=== PATIENT | male | born 1965 | race African-American/Black ===

== ENCOUNTER 2023-06-30 13:31 | Emergency (ER) | payer OTHER, SELFPAY ==
--- NOTE | 2023-06-30 13:37 | ED.SOB ---
HPI - SOB/Dyspnea General Chief Complaint: Unspecified Stated Complaint: SOB/Swelling Legs/Feet Time Seen by Provider: 06/30/23 13:36 Source: patient Mode of arrival: ambulatory Limitations: no limitations History of Present Illness HPI Narrative: Guerrero is a 58-year-old male patient presenting to the clinic today with complaints of shortness of breath, nonproductive cough, and lower extremity swelling. He reports the lower extremity swelling has been going on for approximately 3 weeks. States the cough and shortness of breath has been over the last week. Denies any fever, chills, nausea, vomiting, diarrhea, headache, or URI symptoms. Denies any chest pain currently. No past medical history. Does not currently take any medications. stated symptoms have been going on longer. Related Data Home Medications Medication Instructions Recorded Confirmed No Home Medications 06/30/23 06/30/23 Allergies Allergy/AdvReac Type Severity Reaction Status Date / Time No Known Allergies Allergy Verified 06/30/23 13:45 Review of Systems Review of Systems: Pertinent positives per HPI. Patient denies any fever, chills, rash, headache, visual changes, dizziness, chest pain, palpitations, nausea, vomiting, diarrhea, constipation, abdominal pain, or any urinary issues. PMFSH Comments At the time of my signature, I reviewed and agree with the nursing past medical, surgical, social, and family history. There is no relevant family history pertinent to the patient complaint. Exam Narrative: General: Well-developed, obese, in no apparent distress Head: Normocephalic, atraumatic. Cardio: Irregular rate and rhythm, tachycardic, no murmur appreciated. Resp: Crackles heard over the right posterior middle lobe and lower lobe, no rhonchi, wheezing or rubs. Extremities: No deformity, 2 plus pitting edema in bilateral lower extremities, no cyanosis, capillary refill less than 2 seconds, peripheral pulses palpable and strong. Integumentary: [place], warm, and dry, intact without lesion, no rashes. Course Course Emergency Course: Portions of this record may have been created with voice recognition software. Level of Care: Express Care Visit Vital Signs Vital signs: Vital signs reviewed Transfer Transfered to: [facility] Transportation: ALS Transfer rationale: AFib with RVR-new onset, bilateral lower extremity swelling, crackles in the right posterior lobe, shortness of breath Accepting physician: Laith Transfer comments: Transfer via ALS MDM - SOB/Dyspnea MDM Narrative Medical decision making narrative: At the time of visit patient is resting on the exam table. EKG shows AFib with RVR with a heart rate of 111-new onset. Patient is having cough and shortness of breath with bilateral lower extremity swelling. Recommend transfer to the emergency room and patient agrees. Differential Diagnosis Differential diagnosis: Likely acute exacerbation of chronic obstructive airways disease, congestive heart failure, community acquired pneumonia, asthma with exacerbation, pulmonary embolism and other (AFib with RVR-new onset) ECG Data EKG #1: Attestation: I personally reviewed and interpreted this ECG as follows: ECG completion date: 06/30/23 ECG completion time: 13:53 Prior ECG tracings: not available for review Interpretation: EKG was completed and shows atrial fib with RVR with a heart rate of 111 beats per minute, QRS durations 105 milliseconds, QT-QTC is 281-347 milliseconds, P- R-T axis is * 92 6 Discharge Plan Discharge Clinical Impression: Atrial fibrillation with rapid ventricular response, Shortness of breath, Swelling of both lower extremities Patient Disposition: Acute Care Hospital Condition: Stable Instructions: Antibiotic Form Prescriptions: No Action No Home Medications Follow-up/Referrals: UNKNOWN,DOCTOR [Non-Staff] - Time of Disposition: 14:0
[2023-06-30 13:51] VITALS: BP 136/79; PULSE 103; RESP 16; TEMP 36.8; O2SAT 96
--- NOTE | 2023-06-30 14:10 | ECG_ITS ---
Measurements Intervals [place] Rate: 98 P: NV: 0 QRS: 87 QRSD: 116 T: -37 QT: 371 QTc: 474 Interpretive Statements ATRIAL FIBRILLATION WITH ABERRANT CONDUCTION NONSPECIFIC T-WAVE ABNORMALITY ABNORMAL ECG COMPARED TO ECG 06/30/2023 13:53:37 NO SIGNIFICANT CHANGE Electronically Signed On 07-01-2023 7:25:00 CDT by Devante Delarosa M.D.
== END 2023-06-30 14:05 | disposition short-term general hospital (02) ==
PROVIDERS: Emergency Provider Nurse Practitioner Family
DX: I48.91 Unspecified atrial fibrillation (principal); R06.02 Shortness of breath; R22.43 Localized swelling, mass and lump, lower limb, bilateral
CPT/HCPCS: 93005; 99215; G0463

== ENCOUNTER 2023-06-30 14:29 | Observation (INO) | payer OTHER, SELFPAY ==
[2023-06-30] VITALS (9 sets, daily range): BP systolic 112–153; BP diastolic 86–112; PULSE 94–109; RESP 16–25; TEMP 36.1–36.4; O2SAT 93–97; BMI 44.6
--- NOTE | ~2023-06-30 | US_ITS ---
EXAMINATION: US venous doppler [facility] DATE: 06/30/2023 15:33 INDICATION: Bilateral lower limb swelling TECHNIQUE: Guidry scale images without and with compression and Doppler images of the bilateral lower e xtremity veins were obtained. COMPARISON: None FINDINGS: The right superficial femoral vein is not demonstrated. The right common femoral vein, profunda femor al vein, popliteal vein, peroneal trunk, posterior tibial veins, and greater saphenous vein are paten t. The left common femoral vein, profunda femoral vein, femoral vein, popliteal vein, peroneal trunk, po sterior tibial veins, and greater saphenous vein are patent. IMPRESSION: 1. No deep venous thrombosis identified, examination somewhat limited. Reviewed, dictated and finalized at location F.
--- NOTE | ~2023-06-30 | NM_ITS ---
EXAMINATION: NM gage stress w perfusion DATE: 07/03/2023 12:15 INDICATION: Decreased left ventricular systolic function. Dilated cardiomyopathy. New atrial fibrilla tion. Congestive heart failure. TECHNIQUE: Rest images were obtained following intravenous administration of 9.6 mCi Tc99m tetrofosmi n (Myoview). The patient was infused intravenously with Lexiscan (regadenoson). Then, 31.2 mCi Tc99m tetrofosmin (Myoview) was administered intravenously, and stress images were obtained. Data was recon structed into short axis and horizontal and vertical long axis SPECT images. Gated SPECT images were also obtained. COMPARISON: None. FINDINGS: There is no definite reversible or fixed perfusion abnormality to suggest ischemia or infar ction. There is no segmental wall motion abnormality. Left ventricular ejection fraction measures 4 3%. IMPRESSION: 1. No definite ischemia or infarct. 2. Decreased left ventricular ejection fraction measuring 43%. Reviewed, dictated and finalized at location A.
--- NOTE | ~2023-06-30 | XR_ITS ---
EXAMINATION: XR chest 2V DATE: 06/30/2023 15:44 INDICATION: Shortness of breath TECHNIQUE: PA and lateral views of the chest are obtained. COMPARISON: None available FINDINGS: Cardiomegaly is noted. The lung volumes are low. There is a mild diffuse interstitial patte rn. No pleural effusion or pneumothorax. IMPRESSION: 1. Cardiomegaly with probable mild pulmonary edema. Reviewed, dictated and finalized at location F.
--- NOTE | 2023-06-30 14:31 | ECG_ITS ---
Measurements Intervals [place] Rate: 111 P: IA: 0 QRS: 92 QRSD: 105 T: 6 QT: 281 QTc: 383 Interpretive Statements ATRIAL FIBRILLATION WITH RAPID VENTRICULAR RESPONSE WITH ABERRANT CONDUCTION BORDERLINE RIGHT AXIS DEVIATION [QRS AXIS > 90] NONSPECIFIC T-WAVE ABNORMALITY ABNORMAL RHYTHM ECG NO PREVIOUS ECG AVAILABLE FOR COMPARISON Electronically Signed On 07-01-2023 7:23:59 CDT by Devante Delarosa M.D.
--- NOTE | 2023-06-30 14:45 | ED.SOB ---
HPI - SOB/Dyspnea General Chief Complaint: Shortness of Breath/Dyspnea Stated Complaint: SOB Time Seen by Provider: 06/30/23 14:36 History of Present Illness HPI Narrative: Patient is a 58-year-old male with no known past medical history here with shortness of breath and leg swelling. He states his legs began swelling bilaterally approximately 4 weeks ago. He then noticed about 2 weeks ago that he began having shortness of breath which is worse on exertion. Today his significant other convinced him to go to an urgent care to get seen only promptly sent him into the emergency department after identifying atrial fibrillation on EKG. He states he has not seen a physician for about 25 years, has never seen a buggy driver that he is aware of. He has not been experiencing any chest pains during this period of time. No cough, congestion, fever, chills. He does not take any medications. Related Data Home Medications Medication Instructions Recorded Confirmed No Home Medications 06/30/23 06/30/23 Allergies Allergy/AdvReac Type Severity Reaction Status Date / Time No Known Allergies Allergy Verified 06/30/23 13:45 Review of Systems Review of Systems: CONSTITUTIONAL: Denies fever, chills, or sweats. EYES: Denies visual changes, redness, or discharge. ENT: Denies rhinorrhea, congestion, sore throat, or otalgia. CARDIOVASCULAR: Denies chest pain, palpitations. Has bilateral leg edema. RESPIRATORY: Shortness of breath, Denies cough GASTROINTESTINAL: Denies abdominal pain, nausea, vomiting, or diarrhea. GENITOURINARY: Denies dysuria or hematuria. SKIN: Denies rash or itching. MUSCULOSKELETAL: Denies back pain, joint pain, or myalgia. NEUROLOGIC: Denies headache, numbness, or weakness. PSYCHIATRIC: Denies anxiety or depression. [facility] Social History Social History Smoking status: Never smoker Alcohol intake: current Drinks per week: 5 Substance use: never Lack of Transportation: No Lack of Food: Never True Current Housing: I Have Housing Concerned About Future Housing: No Difficulty Paying Gas/Electric Bills: No Difficulty Paying for Meds: No Currently Unemployed: No Education: Decline to Answer Difficulty w/ Childcare or Family Care: No Spiritual care concerns: No Exam Narrative: GENERAL: Well-appearing, well-nourished, and in no acute distress. HEAD: Normocephalic, atraumatic. EYES: PERRLA and EOMI. ENT: Nares clear. Mucous membranes moist. NECK: Supple. CHEST: Diffuse faint expiratory wheeze bilaterally. No respiratory distress. HEART: irregularly irregular rhythm. Normal peripheral pulses. ABDOMEN: Soft, nontender, nondistended. EXTREMITIES: Normal range of motion. Bilateral lower extremity pitting edema to the knee. SKIN: Warm, dry, no rash. NEURO: No focal deficits. Alert and oriented x3. PSYCH: Normal mood and affect. Course Course Emergency Course: Chart review performed. No prior visits aside from urgent care note today. Patient seen evaluated, in no acute distress, he is here with shortness of breath, leg swelling and an EKG showing rate controlled AFib. Suspect new onset AFib as well as likely new onset heart failure. Will do CHF workup, check electrolytes, chest x-ray, bilateral lower extremity Dopplers. Anticipate admission. Lab work and imaging reviewed. CBC grossly unremarkable, BNP elevated, Troponin within normal limits at 0.022. UA negative. CXR consistent with new onset heart failure. LE doppler negative. Lasix 40 mg ordered. Will discuss with hospitalist for admission. Spoke with Paris, accepted by hospitalist team under Dr. Connell. Dose of eliquis ordered for new onset afib. Vital Signs Vital signs: Vital Signs Pulse Rate 106 H 06/30/23 14:22 Respiratory Rate 24 H 06/30/23 14:22 Blood Pressure 153/112 H 06/30/23 14:22 Pulse Oximetry 97 06/30/23 14:22 Oxygen Delivery
[2023-06-30 15:54] LABS: Basophils Absolute Auto 0.1 K/mm3 (0.0-0.1); Eosinophils Absolute Auto 0.4 K/mm3 (0-0.3); Eosinophils Percent Auto 7.2 % (0-4.4); Hemoglobin 13.3 g/dL (14.0-18.0); Immature Granulocyte Absolute 0.01 K/mm3 (0.00-0.031); Immature Granulocyte Percent A 0.2 % (0-0.5); Lymphocytes Absolute Auto 1.22 K/mm3 (0.9-3.2); Mean Corpuscular HGB Conc 30.2 g/dl (32-36); Mean Corpuscular Hemoglobin 30.6 pg (26-34); Mean Corpuscular Volume 101.4 fl (80-100); Mean Platelet Volume 9.9 fl (7.4-10.4); Monocytes Absolute Auto 0.7 K/mm3 (0.1-0.6); Monocytes Percent Auto 11.5 % (2.6-8.5); Neutrophils Absolute Auto 3.4 K/mm3 (1.3-6.7); Neutrophils Percent Auto 59.1 % (45.5-73.1); Platelet Count Result 227 k/mm3 (150-375); Red Blood Count 4.34 M/mm3 (4.6-6.20); Red Cell Distribution Width 15.1 % (11.5-14.5); White Blood Count 5.8 K/mm3 (4.5-10.0)
[2023-06-30 16:03] LABS: Appearance Urine Clear (Clear); Bacteria Urine None Seen /hpf; Bilirubin Urine Negative (Negative); Blood Urine Negative (Negative); Color Urine Yellow (Yellow); Glucose Urine UA Negative (Negative); Ketones Urine Negative (Negative); Leukocyte Esterase Ur 1+ LEU/UL (Negative); Need Manual Microscopic Reviewed; Nitrate Urine Negative (Negative); Non Pathogenic Casts 0-2; Protein Urine Negative (Negative); RBC Urine 0-2 /hpf (0-2); Specific Grav Ur 1.004 (1.001-1.035); Squamous Epithelial Cell Urine Occasional /hpf (Few); WBC Urine 0-5 /hpf; pH Urine 6.5 (5.0-9.0)
[2023-06-30 16:06] LABS: Alanine Aminotransferase 31 U/L (6-50); Albumin Level 4.2 g/dL (3.5-5.1); Alkaline Phosphatase 84 U/L (38-126); Anion Gap 4 mmol/L (8-16); Aspartate Amino Transferase 35 U/L (17-59); Bilirubin,Total 1.4 mg/dL (0.2-1.3); Blood Urea Nitrogen 9 mg/dL (9-20); Calcium 9.1 mg/dL (8.4-10.2); Carbon Dioxide 36 mmol/L (22-30); Chloride 98 mmol/L (98-107); Estimated CRCL calculation 94 ml/min; Estimated Glomerular Filt Rate > 60; Glucose 125 mg/dL (65-110); Potassium 3.7 mmol/L (3.4-5.0); Sodium 138 mmol/L (137-145)
[2023-06-30 16:08] LABS: INR 1.1; Prothrombin Time 15.1 Seconds (11.1-14.7)
[2023-06-30 16:09] LABS: Partial Thromboplastin Time 27.6 SECONDS (22.3-36.8)
[2023-06-30 16:14] LABS: NT Pro B Type Natriuretic Pept 4720 pg/mL (19.9-100)
[2023-06-30 16:15] LABS: Add Urine Microscopic? YES
[2023-06-30 16:18] LABS: Troponin I 0.022 ng/mL (0.000-0.034)
[2023-06-30 16:24] LABS: Magnesium 2.1 mg/dL (1.6-2.3)
[2023-06-30] MEDS: FUROSEMIDE INJ 40 MG/4 ML VIAL IV PUSH (16:57)
[2023-06-30] MEDS: APIXABAN 5 MG TABLET PO (17:21)
--- NOTE | 2023-06-30 17:24 | PC.NURSE ---
Food tray ordered for patient
--- NOTE | 2023-06-30 19:40 | PM.IMHP ---
H&P: HPI History of Present Illness Date/Time: 06/30/23 19:40 Chief Complaint: Shortness of breath Narrative: This is a 58-year-old male patient who has no prior medical history. The patient has been having some swelling to his lower extremities for at least the last 4 weeks. He has also been more short of breath over the last 2 weeks with exertion. His significant other convinced him to go to the emergency room to get checked out today. The patient had a EKG performed and it was read as atrial fibrillation. The patient has not been to a physician in over 25 years. The patient denies any chest pain. He denies any nausea vomiting diarrhea. He denies any dizziness fever chills or cough. He is not currently on any chronic medications. EKG here confirmed atrial fibrillation with aberrant conduction. His hemoglobin is 13.3. MCV is 101.4. Troponin negative x2. BNP 4720. Chest x-ray was read as?Cardiomegaly with probable mild pulmonary edema. Venous Dopplers were read as. No deep venous thrombosis identified, examination somewhat limited. The patient was given Lasix and Eliquis in the emergency room. The patient is being admitted to observation status on the date of service of 06/30/2023. Review of Systems Review of Systems: All systems reviewed & are unremarkable except as noted in HPI and below Constitutional: Constitutional: Reports as per HPI and Reports no additional constitutional complaints Eyes: Eyes: Reports as per HPI and Reports no additional eye complaints ENT: Reports system reviewed and no additional complaints, except as documented and Reports Normal hearing present Cardiovascular: Cardiovascular: Reports no additional cardiovascular complaints Respiratory: Respiratory: Reports no additional respiratory complaints and Reports no additional respiratory complaints Gastrointestinal: Gastrointestinal: Reports as per HPI and Reports no additional gastrointestinal complaints Musculoskeletal: Musculoskeletal: Reports no additional musculoskeletal complaints Integumentary/Breasts: Skin/Breast: Reports system reviewed and no additional complaints, except as docu and Reports as per HPI Neurologic: Reports system reviewed and no additional complaints, except as documented, Reports as per HPI and Reports Normal hearing present Psychiatric: Psychiatric: Reports no additional psychiatric complaints and Reports as per HPI Endocrine: Endocrine: Reports no additional endocrine complaints Hematologic/Lymphatic: Hematologic/Lymphatic: Reports no additional hematologic/lymphatic complaints Allergic/Immunologic: Allergic/Immunologic: Reports no additional allergic/immunologic complaints [facility] Past Medical History Medical History (Updated 07/01/23 @ 00:08 by Paris Krasu NP) No pertinent past medical history Surgical History Surgical History (Updated 07/01/23 @ 00:08 by Paris Kraus NP) No pertinent past surgical history Family History Family History (Updated 07/01/23 @ 00:09 by Paris Kraus NP) Father Cancer Social History Social History (Updated 07/01/23 @ 00:10 by Paris Kraus NP) Social History: The patient is a lifelong non smoker. The patient has a significant other but they do not live together. The patient has 3 children and he is single. 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 The patient states that he drinks socially on the weekend. Code status full code Smoking status: Never smoker Alcohol intake: current Drinks per week: 5 Substance use: never Lack of Transportation: No Lack of Food: Never True Current Housing: I Have Housing Concerned About Future Housing: No Difficulty Paying Gas/Electric Bills: No Difficulty Paying for Meds: No Currently Unemployed: No Education: Decline to Answer Difficulty w/ Childcare or Family Care: No Spiritual care concerns: No Meds Home Medications and Allergies Home Medications Medication Ins
--- NOTE | 2023-06-30 19:45 | ADMGEN ---
This patient, Guerrero Brown, was admitted to 3 [facility] Surg Room 312-01 @ 2473. Patient/family oriented to hospital policies and general routines including ID bracelet, bed and alarms, visiting hours, pain management, procedures, bathroom and other care routines, personal items, smoking policy, room service/diet, and visiting hours. Information on how to activate the Rapid Response Team has been discussed. Patient/Family are encouraged to report perceived risks to care and to ask questions if they do not understand what they are told or what they should do.
[2023-06-30 21:41] LABS: Troponin I 0.021 ng/mL (0.000-0.034)
[2023-07-01] VITALS (10 sets, daily range): BP systolic 148–156; BP diastolic 95–104; PULSE 88–112; RESP 18–22; TEMP 36.1–36.4; O2SAT 92–97
--- NOTE | 2023-07-01 | ECHO_ITS ---
Patient Info Name: Guerrero Brown Age: 58 years : 1965 Gender: Male Ht: 71 in Wt: 320 lbs BSA: 2.77 m2 HR: 88 bpm BP: 122 / 102 mmHg Heart Rhythm: Atrial Fibrillation Technical Quality: Fair Exam Date: 07/01/2023 11:50 AM Exam Location: [facility] Pulmonary Exam Room: [facility] Patient Status: Outpatient Admit Date: 06/30/2023 Staff Ordering Physician: Paris Kraus NP Coal Cutter: Sophia Mendosa RDCS Attending Provider: Ruiz Emery MD Referring Physician: Efra MANLEY; Exam Type: CA echo dop color flow w con Study Info Indications - new afib Complete two-dimensional, color flow and Doppler transthoracic echocardiogram is performed with contrast to opacify the left ventricle and to improve the deliniation of the left ventricle endocardial borders. Contrast/Agitated Saline Contrast/Ag. Saline: Definity Amount: 2.00 ml Administered By: Sophia Mendosa [facility] Existing IV Access: Yes IV Access Condition: patent with no signs of infiltration Summary 1. Technically somewhat challenging exam because of obesity. 2. Four-chamber cardiac dilation. 3. Moderately depressed left ventricular systolic function and right ventricular systolic dysfunction. 4. Mild mitral and tricuspid regurgitation resulting from annular enlargement. 5. Definity contrast injected to improve visualization. 6. Atrial fibrillation. Left Ventricle Left ventricular chamber dimension is moderately enlarged. Left ventricular systolic function is moderately reduced, estimated at 35-40%. Right Ventricle Right ventricular chamber dimension is moderately enlarged. Right ventricular systolic function is reduced. Left Atria Left atrial chamber dimension is severely enlarged. Right Atria Right atrial chamber dimension is moderately enlarged. Aortic Valve The aortic valve is normal. Pulmonic Valve The pulmonic valve is normal. There is trace pulmonic regurgitation. Mitral Valve The mitral valve has normal leaflets. There is mild mitral valve regurgitation. Tricuspid Valve The tricuspid valve leaflets are normal. There is mild tricuspid valve regurgitation. Pericardium/Pleural The pericardium appears normal. Aorta The aortic root size at the sinus of Valsalva is normal. Left Ventricular Outflow Tract Name Value Normal LVOT 2D LVOT Diameter 2.08 cm LVOT Doppler LVOT Peak Gradient 4 mmHg LVOT Mean Gradient 3 mmHg LVOT VTI 18.69 cm LVOT VTI/AV VTI Ratio 1.12 LVOT Stroke Volume 63.69 ml LVOT CO 16.73 l/min LVOT CI 6.05 L/min/m2 Pulmonic Valve Name Value Normal RVOT Doppler RVOT Peak Gradient 0 mmHg PV Doppler
[2023-07-01 01:07] LABS: Troponin I 0.025 ng/mL (0.000-0.034)
--- NOTE | 2023-07-01 05:48 | PC.NURSE ---
bladder scanned pt this morning 262 ml
[2023-07-01 07:03] LABS: Basophils Absolute Auto 0.1 K/mm3 (0.0-0.1); Basophils Percent Auto 0.9 % (0.2-1.2); Eosinophils Absolute Auto 0.5 K/mm3 (0-0.3); Eosinophils Percent Auto 8.3 % (0-4.4); Hematocrit 43.7 % (42.0-52.0); Hemoglobin 13.4 g/dL (14.0-18.0); Immature Granulocyte Absolute 0.02 K/mm3 (0.00-0.031); Immature Granulocyte Percent A 0.4 % (0-0.5); Lymphocytes Absolute Auto 1.06 K/mm3 (0.9-3.2); Lymphocytes Percent Auto 19.2 % (18.3-44.2); Mean Corpuscular HGB Conc 30.7 g/dl (32-36); Mean Corpuscular Volume 101.2 fl (80-100); Mean Platelet Volume 9.9 fl (7.4-10.4); Monocytes Absolute Auto 0.7 K/mm3 (0.1-0.6); Neutrophils Absolute Auto 3.3 K/mm3 (1.3-6.7); Neutrophils Percent Auto 59.2 % (45.5-73.1); Platelet Count Result 231 k/mm3 (150-375); Red Blood Count 4.32 M/mm3 (4.6-6.20); White Blood Count 5.5 K/mm3 (4.5-10.0)
[2023-07-01 07:19] LABS: Alanine Aminotransferase 30 U/L (6-50); Alkaline Phosphatase 92 U/L (38-126); Aspartate Amino Transferase 36 U/L (17-59); Bilirubin,Total 1.3 mg/dL (0.2-1.3); Blood Urea Nitrogen 11 mg/dL (9-20); Calcium 8.8 mg/dL (8.4-10.2); Carbon Dioxide > 40 mmol/L (22-30); Chloride 96 mmol/L (98-107); Estimated CRCL calculation 94 ml/min; Estimated Glomerular Filt Rate > 60; Glucose 107 mg/dL (65-110); Magnesium 2.1 mg/dL (1.6-2.3); Sodium 139 mmol/L (137-145)
--- NOTE | 2023-07-01 09:27 | PM.CNCAR ---
Assessment and Plan Assessment and plan (1) A-fib: Qualifiers: Atrial fibrillation type: unspecified Qualified Code(s): I48.91 - Unspecified atrial fibrillation Code(s): I48.91 - Unspecified atrial fibrillation Status: Acute Assessment and Plan: New diagnosis of atrial fibrillation. Chronicity unknown. Rate controlled with metoprolol. Discussed management of AF including rate vs. rhythm control. For now, will continue with rate control with plan for outpatient DCCV after he has been anticoagulated for 4-6 weeks Continue metoprolol 6.25mg b.i.d for now - he did have some mild bradycardia this morning, but also had some RVR. Generally rate controlled in the 90's. [id number] score 2 (HTN, CHF). Anticoagulation is warranted. Continue apixaban 5mg b.i.d. Echo has been ordered. Further recommendations to follow. ApneaLink tonight if he remains hospitalized Check TSH (2) Congestive heart failure: Qualifiers: Heart failure chronicity: acute Heart failure type: unspecified Qualified Code(s): I50.9 - Heart failure, unspecified Code(s): I50.9 - Heart failure, unspecified Status: Acute Assessment and Plan: Presents with shortness of breath and lower extremity edema. Improving with IV diuresis. ? diastolic heart failure Continue with IV furosemide for now Echo pending Further recommendations to follow echo results History of Present Illness History of Present Illness Consult date/time: 07/01/23 09:27 Requesting physician: Paris Kraus NP Consult reason: atrial fibrillation Reason For Visit: New Onset Afib/New Onset Heart Failure Narrative: Mr. Brown is a 58 year old male who presented to the hospital with a chief complaint of lower extremity swelling. He has no known medical history and has not seen a doctor in ~25 years. He began to experience bilateral calf and ankle swelling about one month ago. At that time he also began experiencing some shortness of breath. When he came to the hospital for evaluation of this he was found to be in atrial fibrillation with rapid ventricular response which is a new diagnosis for him. He denies feeling any palpitations or chest pain. He has been placed on a very low dose of beta priyanka and an anticoagulant. He is feeling better after receiving some diuretics as well and reports that his swelling is improved. Review of Systems Review of Systems: All systems reviewed & are unremarkable except as noted in HPI and below PMFSH Past Medical History Medical History No pertinent past medical history Surgical History Surgical History No pertinent past surgical history Family History Family History Father Cancer Social History Social History Social History: The patient is a lifelong non smoker. The patient has a significant other but they do not live together. The patient has 3 children and he is single. 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 The patient states that he drinks socially on the weekend. Code status full code Smoking status: Never smoker Alcohol intake: current Drinks per week: 5 Substance use: never Lack of Transportation: No Lack of Food: Never True Current Housing: I Have Housing Concerned About Future Housing: No Difficulty Paying Gas/Electric Bills: No Difficulty Paying for Meds: No Currently Unemployed: No Education: Decline to Answer Difficulty w/ Childcare or Family Care: No Spiritual care concerns: No Meds Home Medications and Allergies Home Medications Medication Instructions Recorded Confirmed Type apixaban 5 mg tablet (Eliquis) 5 mg PO Q12HR 1 month #60 tabs 07/04/23 Rx furosemide 40 mg tablet 40 mg PO SHIRA
--- NOTE | 2023-07-01 10:30 | PM.IMPN ---
Progress Note: A&P Assessment and Plan (1) A-fib: Qualifiers: Atrial fibrillation type: unspecified Qualified Code(s): I48.91 - Unspecified atrial fibrillation Code(s): I48.91 - Unspecified atrial fibrillation Status: Acute Assessment and Plan: New onset. TSH normal. echo ordered. The patient was started on Eliquis. The patient is rate controlled at this time. Cardiology has been consulted (2) Congestive heart failure: Qualifiers: Heart failure chronicity: acute Heart failure type: unspecified Qualified Code(s): I50.9 - Heart failure, unspecified Code(s): I50.9 - Heart failure, unspecified Status: Acute Assessment and Plan: Chest x-ray was read as. Cardiomegaly with probable mild pulmonary edema The patient was started on IV Lasix. Metoprolol initiated. Echo ordered Subjective Date/time seen: 07/01/23 10:30 Interval history: No chest pain, shortness of breath Review of Systems Review of Systems: All systems reviewed & are unremarkable except as noted in HPI and below Exam Const: General: cooperative, healthy appearing, comfortable, no acute distress, well developed, alert, awake, Physically active, average body habitus and well nourished Nutritional Appearance: average body habitus and well nourished Orientation/consciousness: oriented to person, oriented to place, oriented to time and patient oriented x3 Limitations: no limitations HENMT: Head: normal to inspection, No palpable skull fracture present, normocephalic and atraumatic Ears: hearing grossly normal bilaterally and external ears normal Face/Nose/Sinus: Normal external nose present and Normal nares present Eyes: General: appearance normal, both eyes and all related structures Alignment and Position: alignment normal Periorbital: periorbital findings normal Eyelids: eyelids normal Sclera: sclerae normal Pupils: Equal, round and reactive pupils present EOM: EOMs intact bilaterally Neck: Neck: normal visual inspection, full ROM, no lymphadenopathy, trachea midline and supple Chest: Chest palpation & inspection: normal inspection of the chest Resp: Effort & Inspection: normal respiratory effort Auscultation: clear to auscultation bilaterally Cardio: Palpation: normal PMI Rate: regular rate Rhythm: abnormal rhythm Heart sounds: S1 normal heart sound present and S2 normal heart sound present Peripheral pulses: Peripheral pulses 2+ throughout GI: Inspection: normal to inspection Auscultation: normal bowel sounds Rectal Exam: deferred Back/Spine/Pelvis: Cervical Spine: cervical ROM normal Skin: General skin exam: normal color Lesions: no lesions Rashes: no rashes Trauma: no lacerations or abrasions Wounds: no wounds Hair: normal Nails: normal Neuro: General: oriented to person, oriented to place, oriented to time and patient oriented x3 Cranial nerves: Yes Equal, round and reactive pupils present and Yes Normal hearing present Cognition (Neuro): normal cognition Speech: normal speech Gait exam (Neuro): Normal gait present Motor exam (neuro): 5/5 motor strength present throughout Sensory Exam: normal sensation Extrem: General: normal to inspection Right upper extremity: normal to inspection and shoulder/upper arm Left upper extremity: normal to inspection and shoulder/upper arm Right lower extremity: edema Details: 1+ Left lower extremity: edema Details: 1+ Psych: Appearance: grossly normal Mental Status: mental status grossly normal Speech and movement: Normal speech and movement present Affect: normal affect Attitude: cooperative Thought process: Normal thought process present Thought content: Yes Normal thought content present Insight: Good insight present (Psych) Judgement: Good judgement present (Psych) Objective Data Vital Signs Vital Signs: Vital Signs - 24 hr 06/30/23 14:22 06/30/23 14:30 06/30/23 15:00 Temperature Pulse Rate 106 H 94 98 Respir
[2023-07-01] MEDS: METOPROLOL TARTRATE 6.25 MG TABLET PO ×2 (10:53→21:07)
[2023-07-01] MEDS: FUROSEMIDE INJ 40 MG/4 ML VIAL IV PUSH ×2 (10:53→18:05)
[2023-07-01] MEDS: APIXABAN 5 MG TABLET PO ×2 (10:53→21:08)
[2023-07-01] MEDS: PERFLUTREN LIPID MICROSPHERES 1.5 ML VIAL DILUTED TO 10 ML TOTAL VOLUME IV PUSH (12:20)
--- NOTE | 2023-07-01 14:00 | IVDEFINITY ---
Prior to administration of IV Definity the patient was educated on the risks and benefits of the imaging enhancing agent including potential adverse side effects. The patient verbalized understanding. Allergies were verified. No exclusion criteria were identified and at least one of the following inclusion criteria were met: 1) physician request, 2) patient technically difficult to image (per the [place] [employer] guidelines of two or more segments not discernable within the apical view), or 3) questionable left ventricular function. ?
[2023-07-02] VITALS (15 sets, daily range): BP systolic 120–174; BP diastolic 80–108; PULSE 61–119; RESP 16–22; TEMP 35.8–36.9; O2SAT 89–96
[2023-07-02] MEDS: METOPROLOL TARTRATE INJ 5 MG/5 ML VIAL IV PUSH (05:37)
[2023-07-02] MEDS: METOPROLOL TARTRATE 25 MG TABLET PO ×2 (09:11→20:21)
[2023-07-02] MEDS: FUROSEMIDE INJ 40 MG/4 ML VIAL IV PUSH (09:11)
[2023-07-02] MEDS: APIXABAN 5 MG TABLET PO ×2 (09:11→20:21)
--- NOTE | 2023-07-02 09:57 | PM.PNCARD ---
Progress Note: A&P Assessment and Plan (1) A-fib: Qualifiers: Atrial fibrillation type: unspecified Qualified Code(s): I48.91 - Unspecified atrial fibrillation Code(s): I48.91 - Unspecified atrial fibrillation Status: Acute Assessment and Plan: New diagnosis of atrial fibrillation. Chronicity unknown. Rate controlled with metoprolol. Discussed management of AF including rate vs. rhythm control. For now, will continue with rate control with plan for outpatient DCCV after he has been anticoagulated for 4-6 weeks Continue metoprolol 25mg b.i.d. Should be shifted to Toprol XL at d/c. [id number] score 2 (HTN, CHF). Anticoagulation is warranted. Continue apixaban 5mg b.i.d. Echo showed moderately reduced LVSF, EF 35 - 40%. ApneaLink AHI 74. Outpatient sleep study. (2) Congestive heart failure: Qualifiers: Heart failure chronicity: acute Heart failure type: unspecified Qualified Code(s): I50.9 - Heart failure, unspecified Code(s): I50.9 - Heart failure, unspecified Status: Acute Assessment and Plan: Presents with shortness of breath and lower extremity edema. Improving with IV diuresis. Shift to p.o. furosemide tomorrow (3) Cardiomyopathy: Code(s): I42.9 - Cardiomyopathy, unspecified Status: Acute Assessment and Plan: Moderately reduced LVSF, EF 35 - 40% GDMT with entresto, spironolactone, metoprolol (should be shifted to Toprol XL at d/c) Will need an ischemic evaluation, can be done as outpatient as he is not having any anginal symptoms. Furthermore, he is on DOAC currently. Can add jardiance as well if it is affordable BMP tomorrow (4) NSVT (nonsustained ventricular tachycardia): Code(s): I47.29 - Other ventricular tachycardia Status: Acute Assessment and Plan: 7 beat run of NSVT on telemetry this morning. Continue beta priyanka. Subjective Date/time seen: 07/02/23 09:57 Interval history: Cardiology follow up for Afib, CHF Feeling well today. Swelling continues to improve. He denies any chest pain or palpitations. Shortness of breath resolved. no GOMEZ Review of Systems Review of Systems: All systems reviewed & are unremarkable except as noted in HPI and below Exam Const: General: comfortable, no acute distress, alert and awake Orientation/consciousness: patient oriented x3 HENMT: Head: normal to inspection Eyes: General: appearance normal, both eyes and all related structures Pupils: Equal, round and reactive pupils present Neck: Neck: normal visual inspection, supple and no JVD Carotids: normal carotid upstroke Resp: Effort & Inspection: normal respiratory effort Auscultation: no rales Cardio: Rate: regular rate Rhythm: abnormal rhythm irregularly irregular Heart sounds: S1 normal heart sound present, S2 normal heart sound present and no murmurs GI: Auscultation: normal bowel sounds Skin: General skin exam: normal color Neuro: General: patient oriented x3 Cranial nerves: Yes Equal, round and reactive pupils present Extrem: General: edema and pedal edema Psych: Appearance: grossly normal Mental Status: mental status grossly normal Objective Data Vital Signs Vital Signs: Vital Signs - 24 hr 07/01/23 10:53 07/01/23 13:52 07/01/23 10:30 Temperature 36.3 C L Pulse Rate 112 H 96 95 Respiratory Rate 22 H Blood Pressure 152/97 H Pulse Oximetry 92 Oxygen Delivery 07/01/23 12:00 07/01/23 16:00 07/01/23 22:00 Temperature 36.1 C L Pulse Rate 98 98 108 H Respiratory Rate 18 Blood Pressure 156/95 H Pulse Oximetry 97 Oxygen Delivery 07/01/23 20:00 07/01/23 20:00 07/02/23 00:00 Temperature Pulse Rate 103 H 119 H Respiratory Rate Blood Pressure Pulse Oximetry Oxygen Delivery Room Air 07/02/23 04:00 07/02/23 04:50 07/02/23 06:15 Temperature 36.9 C 35.8 C L Pulse Rate 111 H 93 75 Respiratory Rate 18 16 Blood Pres
--- NOTE | 2023-07-02 11:18 | PM.IMPN ---
Progress Note: A&P Assessment and Plan (1) A-fib: Qualifiers: Atrial fibrillation type: unspecified Qualified Code(s): I48.91 - Unspecified atrial fibrillation Code(s): I48.91 - Unspecified atrial fibrillation Status: Acute Assessment and Plan: New onset. TSH normal. echo shows decreased ejection fraction. The patient was started on Eliquis. The patient is rate controlled at this time. Cardiology has been consulted (2) Congestive heart failure: Qualifiers: Heart failure chronicity: acute Heart failure type: unspecified Qualified Code(s): I50.9 - Heart failure, unspecified Code(s): I50.9 - Heart failure, unspecified Status: Acute Assessment and Plan: Chest x-ray was read as Cardiomegaly with probable mild pulmonary edema The patient was started on IV Lasix. Metoprolol initiated. Moderately reduced LVSF, EF 35 - 40% GDMT with entresto, spironolactone, metoprolol (should be shifted to Toprol XL at d/c) Patient will undergo nuclear stress test tomorrow Subjective Date/time seen: 07/02/23 11:18 Interval history: Asymptomatic Review of Systems Review of Systems: All systems reviewed & are unremarkable except as noted in HPI and below Exam Const: General: cooperative, healthy appearing, comfortable, no acute distress, well developed, alert, awake, Physically active, average body habitus and well nourished Nutritional Appearance: average body habitus and well nourished Orientation/consciousness: oriented to person, oriented to place, oriented to time and patient oriented x3 Limitations: no limitations HENMT: Head: normal to inspection, No palpable skull fracture present, normocephalic and atraumatic Ears: hearing grossly normal bilaterally and external ears normal Face/Nose/Sinus: Normal external nose present and Normal nares present Eyes: General: appearance normal, both eyes and all related structures Alignment and Position: alignment normal Periorbital: periorbital findings normal Eyelids: eyelids normal Sclera: sclerae normal Pupils: Equal, round and reactive pupils present EOM: EOMs intact bilaterally Neck: Neck: normal visual inspection, full ROM, no lymphadenopathy, trachea midline and supple Chest: Chest palpation & inspection: normal inspection of the chest Resp: Effort & Inspection: normal respiratory effort Auscultation: clear to auscultation bilaterally Cardio: Palpation: normal PMI Rate: regular rate Rhythm: abnormal rhythm Heart sounds: S1 normal heart sound present and S2 normal heart sound present Peripheral pulses: Peripheral pulses 2+ throughout GI: Inspection: normal to inspection Auscultation: normal bowel sounds Rectal Exam: deferred Back/Spine/Pelvis: Cervical Spine: cervical ROM normal Skin: General skin exam: normal color Lesions: no lesions Rashes: no rashes Trauma: no lacerations or abrasions Wounds: no wounds Hair: normal Nails: normal Neuro: General: oriented to person, oriented to place, oriented to time and patient oriented x3 Cranial nerves: Yes Equal, round and reactive pupils present and Yes Normal hearing present Cognition (Neuro): normal cognition Speech: normal speech Gait exam (Neuro): Normal gait present Motor exam (neuro): 5/5 motor strength present throughout Sensory Exam: normal sensation Extrem: General: normal to inspection Right upper extremity: normal to inspection and shoulder/upper arm Left upper extremity: normal to inspection and shoulder/upper arm Right lower extremity: edema Details: 1+ Left lower extremity: edema Details: 1+ Psych: Appearance: grossly normal Mental Status: mental status grossly normal Speech and movement: Normal speech and movement present Affect: normal affect Attitude: cooperative Thought process: Normal thought process present Thought content: Yes Normal thought content present Insight: Good insight present (Psych) Judgement: Good judgement present (Ps
[2023-07-02] MEDS: SACUBITRIL/VALSARTAN 24-26 MG TABLET 1 TAB PO (20:21)
[2023-07-02] MEDS: hydrALAZINE HCL 20 MG/ML VIAL 10 MG IV PUSH (23:14)
[2023-07-03] VITALS (10 sets, daily range): BP systolic 116–129; BP diastolic 80–101; PULSE 66–116; RESP 14–18; TEMP 35.8–36.6; O2SAT 92–97
[2023-07-03 07:10] LABS: Anion Gap 3 mmol/L (8-16); Blood Urea Nitrogen 15 mg/dL (9-20); Calcium 9.2 mg/dL (8.4-10.2); Carbon Dioxide 38 mmol/L (22-30); Chloride 94 mmol/L (98-107); Estimated CRCL calculation 94 ml/min; Estimated Glomerular Filt Rate > 60; Glucose 110 mg/dL (65-110); Potassium 4.5 mmol/L (3.4-5.0); Sodium 135 mmol/L (137-145)
--- NOTE | 2023-07-03 10:22 | PM.IMPN ---
Progress Note: A&P Assessment and Plan (1) A-fib: Qualifiers: Atrial fibrillation type: unspecified Qualified Code(s): I48.91 - Unspecified atrial fibrillation Code(s): I48.91 - Unspecified atrial fibrillation Status: Acute Assessment and Plan: New onset. TSH normal. Echo shows decreased ejection fraction. The patient was started on Eliquis. The patient is rate controlled at this time. Cardiology has been consulted, recommending event monitor, outpatient PSG, eliquis and cont metoprolol at higher dose, monitor (2) Congestive heart failure: Qualifiers: Heart failure chronicity: acute Heart failure type: unspecified Qualified Code(s): I50.9 - Heart failure, unspecified Code(s): I50.9 - Heart failure, unspecified Status: Acute Assessment and Plan: Chest x-ray was read as Cardiomegaly with probable mild pulmonary edema The patient was started on IV Lasix. Metoprolol initiated. Moderately reduced LVSF, EF 35 - 40% GDMT with entresto, spironolactone, meoprolol (should be shifted to Toprol XL at d/c) Stress test wnl, d/c home tomorrow anticipated Plan DVT prophylaxis with Eliquis GI prophylaxis not indicated Code status full code Subjective Date/time seen: 07/03/23 10:22 Interval history: No overnight events noted. No chest pain or shortness of breath. No nausea, vomiting or diarrhea. No fevers or chills. C/o constipation and requesting stool softener. Review of Systems Review of Systems: 12 point review of systems was assessed and was negative except as noted in the HPI Exam Narrative: General: No acute distress, alert and oriented per baseline HEENT: Atraumatic, normocephalic, mucous membranes moist CV: Regular rate and rhythm, S1, S2 Lungs: Clear to auscultation bilaterally, no rales or crackles noted, no wheezes, good air entry Abdomen: Soft, nontender, nondistended Extremities: Normal to inspection Skin: No rashes noted, no lesions or wounds seen Psych: Euthymic, normal affect Objective Data Vital Signs Vital Signs: Vital Signs - 24 hr 07/02/23 12:00 07/02/23 14:00 07/02/23 15:55 Temperature 97.1 F L Pulse Rate 61 99 Respiratory Rate 22 H Blood Pressure 123/91 H Pulse Oximetry 89 L 91 Oxygen Delivery 07/02/23 16:07 07/02/23 16:00 07/02/23 20:21 Temperature 97.1 F L Pulse Rate 80 80 103 H Respiratory Rate 20 Blood Pressure 120/80 Pulse Oximetry 91 Oxygen Delivery 07/02/23 20:00 07/02/23 20:00 07/02/23 22:00 Temperature 96.7 F L Pulse Rate 91 90 Respiratory Rate 16 Blood Pressure 174/106 H Pulse Oximetry 96 Oxygen Delivery Room Air 07/02/23 23:59 07/03/23 00:00 07/03/23 04:13 Temperature 97.8 F Pulse Rate 116 H 88 Respiratory Rate 20 18 Blood Pressure 123/96 H 129/81 Pulse Oximetry 96 Oxygen Delivery 07/03/23 04:00 07/03/23 09:16 Temperature Pulse Rate 66 Respiratory Rate Blood Pressure Pulse Oximetry 92 Oxygen Delivery Room Air Intake/Output Intake/Output: Intake & Output 06/30/23 07/01/23 07/02/23 07/03/23 23:59 23:59 23:59 23:59 Intake Total 2070 1372 200 Output Total 3700 4400 1400 Balance -1630 -3028 -1200 Meds/Results Medications: Active Medications Generic Name Dose Route Start Last Admin Trade Name Alejandra PRN Reason Stop Dose Admin Apixaban 5 mg 07/01/23 09:00 07/02/23 20:21 Apixaban 5 Mg Tablet PO 5 mg Q12HR CARLOS Administration Furosemide 40 mg 07/03/23 09:00 Furosemide 40 Mg Tablet PO DAILY CARLOS Metoprolol Tartrate 25 mg 07/02/23 09:00 07/02/23 20:21 Metoprolol Tartrate 25 Mg Tablet PO 25 mg Q12HR CARLOS Administration Sacubitril/Valsartan 1 tab 07/02/23 21:00 07/02/23 20:21 Sacubitril/Valsartan 24-26 Mg Tablet PO 1 tab Q12HR CARLOS Administration Spironolactone 25 mg 07/03/23 09:00 Spironolactone 25 Mg Tablet PO QA CARLOS R
--- NOTE | 2023-07-03 11:16 | PM.PNCARD ---
Progress Note: A&P Assessment and Plan (1) A-fib: Qualifiers: Atrial fibrillation type: unspecified Qualified Code(s): I48.91 - Unspecified atrial fibrillation Code(s): I48.91 - Unspecified atrial fibrillation Status: Acute Assessment and Plan: New diagnosis of atrial fibrillation. Chronicity unknown. Pursuing rate control strategy with beta priyanka. Discussed management of AF including rate vs. rhythm control. For now, will continue with rate control with plan for outpatient DCCV after he has been anticoagulated for 4-6 weeks Will shift to Toprol today. Increasing dose of Metoprolol for better rate control due to intermittent RVR. Will do Metoprolol 100mg QD. [id number] score 2 (HTN, CHF). Anticoagulation is warranted. Continue Apixaban 5mg b.i.d. Echo showed moderately reduced LVSF, EF 35 - 40%. ApneaLink AHI 74. Outpatient sleep study. (2) Congestive heart failure: Qualifiers: Heart failure chronicity: acute Heart failure type: unspecified Qualified Code(s): I50.9 - Heart failure, unspecified Code(s): I50.9 - Heart failure, unspecified Status: Acute Assessment and Plan: Presents with shortness of breath and lower extremity edema. Improved with IV diuresis. Now on PO Lasix. Continue with PO Lasix. (3) Cardiomyopathy: Code(s): I42.9 - Cardiomyopathy, unspecified Status: Acute Assessment and Plan: Moderately reduced LVSF, EF 35 - 40% GDMT with Entresto, Spironolactone, Toprol. Can add Jardiance as well if it is affordable Undergoing nuclear stress test today. (4) NSVT (nonsustained ventricular tachycardia): Code(s): I47.29 - Other ventricular tachycardia Status: Acute Assessment and Plan: Continue beta priyanka. Subjective Date/time seen: 07/03/23 11:16 Interval history: Reason for visit: Atrial fibrillation with RVR, congestive heart failure HPI: Mr. Brown is a 58 year old male who presented to the hospital with a chief complaint of lower extremity swelling.? He has no known medical history and has not seen a doctor in ~25 years.? He began to experience bilateral calf and ankle swelling about one month ago.? At that time he also began experiencing some shortness of breath.? When he came to the hospital for evaluation of this he was found to be in atrial fibrillation with rapid ventricular response which is a new diagnosis for him.? He denies feeling any palpitations or chest pain.? He has been placed on a very low dose of beta priyanka and an anticoagulant.? He is feeling better after receiving some diuretics as well and reports that his swelling is improved.? Date of service 07/02: Feeling well today.? Swelling continues to improve.? He denies any chest pain or palpitations.? Shortness of breath resolved. No GOMEZ. Date of service 07/03: Seen in Nuc Med today. Doing well today. No chest pain. Feeling better. Review of Systems Review of Systems: No chest pain. Occasional palpitations. No orthopnea. Exam Const: General: comfortable and no acute distress HENMT: Mouth: Yes moist mucous membranes Eyes: General: appearance normal, both eyes and all related structures Sclera: sclerae normal Neck: Neck: supple Resp: Effort & Inspection: normal respiratory effort Cardio: Rate: tachycardic Rhythm: abnormal rhythm irregularly irregular Other: No lower extremity edema Skin: General skin exam: normal color Neuro: Speech: normal speech Psych: Mental Status: mental status grossly normal Affect: normal affect Objective Data Vital Signs Vital Signs: Vital Signs - 24 hr 07/02/23 12:00 07/02/23 14:00 07/02/23 15:55 Temperature 36.2 C L Pulse Rate 61 99 Respiratory Rate 22 H Blood Pressure 123/91 H Pulse Oximetry 89 L 91 Oxygen Delivery 07/02/23 16:07 07/02/23 16:00 07/02/23 20:21 Temperature 36.2 C L Pulse Rate 80 80 103 H Respiratory Rate 20 Blood Press
[2023-07-03] MEDS: FUROSEMIDE 40 MG TABLET PO (12:14)
[2023-07-03] MEDS: SACUBITRIL/VALSARTAN 24-26 MG TABLET 1 TAB PO ×2 (12:14→20:33)
[2023-07-03] MEDS: METOPROLOL SUCCINATE EXT REL 50 MG TABCR 100 MG PO (12:14)
[2023-07-03] MEDS: APIXABAN 5 MG TABLET PO ×2 (12:14→20:33)
[2023-07-03] MEDS: SPIRONOLACTONE 25 MG TABLET PO (12:15)
--- NOTE | 2023-07-03 18:10 | EST_ITS ---
Patient Info Name: Guerrero Brown Age: 58 years : 1965 Gender: Male Ht: 71 in Wt: 320 lbs BSA: 2.77 m2 HR: 102 bpm BP: 132 / 75 mmHg Exam Date: 07/03/2023 11:03 AM Exam Location: [facility] Stress Patient Status: Inpatient Admit Date: 06/30/2023 Staff Ordering Physician: Ruiz Emery MD Attending Provider: Ruiz Emery MD Exercise Technologist: Anuja Ball BERKLEY Exercise Physician: Lavonne Euceda MD Exam Type: CA stress gage w NM Study Info A regadenoson stress test was performed. Summary 1. No abnormal ST/T wave changes diagnostic of ischemia with Lexiscan. 2. Occasional PVCs. 3. Please correlate with nuclear medicine images, reported separately. Protocol: Lexiscan Stress ECG Details Stage: REST Duration (min): 0 min : 15 sec HR (bpm): 96 SBP (mmHg): --- DBP (mmHg): --- Stage: REST Duration (min): 2 min : 45 sec HR (bpm): 100 SBP (mmHg): 132 DBP (mmHg): 75 Stage: STAGE 1 Duration (min): 1 min : 0 sec HR (bpm): 103 SBP (mmHg): 128 DBP (mmHg): 83 Stage: RECOVERY Duration (min): 1 min : 0 sec HR (bpm): 111 SBP (mmHg): 128 DBP (mmHg): 83 Stage: RECOVERY Duration (min): 2 min : 0 sec HR (bpm): 107 SBP (mmHg): 128 DBP (mmHg): 83 Stage: RECOVERY Duration (min): 3 min : 0 sec HR (bpm): 108 SBP (mmHg): 124 DBP (mmHg): 88 Stage: RECOVERY Duration (min): 4 min : 0 sec HR (bpm): 109 SBP (mmHg): 124 DBP (mmHg): 88 Stage: RECOVERY Duration (min): 4 min : 41 sec HR (bpm): 98 SBP (mmHg): 121 DBP (mmHg): 88 Rest HR: 100 bpm Peak HR: 123 bpm Rest Sys BP: 132 mmHg Peak Sys BP: 128 mmHg Max Pred HR: 161 bpm % Max Pred HR: 76 % Target HR: 137 bpm Max RPP: 15,744 bpm*mmHg Total Time: 1 min : 0 sec Rest Trevizo BP: 75 mmHg Peak Trevizo BP: 83 mmHg Total Dose: 0.4 mg Resting ECG Atrial fibrillation. Stress ECG Atrial fibrillation with RVR. No abnormal ST/T wave changes diagnostic of ischemia with Lexiscan. Arrhythmias Occasional PVCs. Report Signatures
--- NOTE | 2023-07-03 18:58 | PC.NURSE ---
Pt went to [place] for stress test. Called mgr Allison of cath, who stated to hold all medications until after procedure since he was early procedure. Meds given upon pt return to floor.
[2023-07-03] MEDS: DOCUSATE SODIUM 100 MG CAPSULE PO (20:33)
[2023-07-04] VITALS: PULSE 93
[2023-07-04 04:00] VITALS: PULSE 101
[2023-07-04 05:40] VITALS: BP 105/75; PULSE 82; RESP 13; TEMP 36.2; O2SAT 94
[2023-07-04 06:39] LABS: Potassium 4.4 mmol/L (3.4-5.0)
[2023-07-04 08:00] VITALS: PULSE 102
[2023-07-04 08:50] VITALS: PULSE 108
[2023-07-04] MEDS: METOPROLOL SUCCINATE EXT REL 50 MG TABCR 100 MG PO (08:50)
[2023-07-04] MEDS: FUROSEMIDE 40 MG TABLET PO (08:51)
[2023-07-04] MEDS: SACUBITRIL/VALSARTAN 24-26 MG TABLET 1 TAB PO (08:51)
[2023-07-04] MEDS: APIXABAN 5 MG TABLET PO (08:51)
[2023-07-04] MEDS: SPIRONOLACTONE 25 MG TABLET PO (08:51)
--- NOTE | 2023-07-04 08:59 | PM.PNCARD ---
Progress Note: A&P Assessment and Plan (1) A-fib: Qualifiers: Atrial fibrillation type: unspecified Qualified Code(s): I48.91 - Unspecified atrial fibrillation Code(s): I48.91 - Unspecified atrial fibrillation Status: Acute Assessment and Plan: New diagnosis of atrial fibrillation. Chronicity unknown. Pursuing rate control strategy with beta priyanka. Discussed management of AF including rate vs. rhythm control. For now, will continue with rate control with plan for outpatient DCCV after he has been anticoagulated for 4-6 weeks Rate controlled, no significant RVR. Continue ToprolXL 100mg QD. [id number] score 2 (HTN, CHF). Anticoagulation is warranted. Continue Apixaban 5mg b.i.d. Echo showed moderately reduced LVSF, EF 35 - 40%. ApneaLink AHI 74. Outpatient sleep study. OK for discharge today from a cardiac standpoint. (2) Congestive heart failure: Qualifiers: Heart failure chronicity: acute Heart failure type: unspecified Qualified Code(s): I50.9 - Heart failure, unspecified Code(s): I50.9 - Heart failure, unspecified Status: Acute Assessment and Plan: Presents with shortness of breath and lower extremity edema. Improved with IV diuresis. Now on PO Lasix. Continue with PO Lasix. (3) Cardiomyopathy: Code(s): I42.9 - Cardiomyopathy, unspecified Status: Acute Assessment and Plan: Moderately reduced LVSF, EF 35 - 40% GDMT with Entresto, Spironolactone, Toprol. Can add Jardiance as well if it is affordable Nuclear stress test negative for ishemia. (4) NSVT (nonsustained ventricular tachycardia): Code(s): I47.29 - Other ventricular tachycardia Status: Acute Assessment and Plan: Continue beta priyanka. Subjective Date/time seen: 07/04/23 08:59 Interval history: Reason for visit: Atrial fibrillation with RVR, congestive heart failure HPI: Mr. Brown is a 58 year old male who presented to the hospital with a chief complaint of lower extremity swelling.? He has no known medical history and has not seen a doctor in ~25 years.? He began to experience bilateral calf and ankle swelling about one month ago.? At that time he also began experiencing some shortness of breath.? When he came to the hospital for evaluation of this he was found to be in atrial fibrillation with rapid ventricular response which is a new diagnosis for him.? He denies feeling any palpitations or chest pain.? He has been placed on a very low dose of beta priyanka and an anticoagulant.? He is feeling better after receiving some diuretics as well and reports that his swelling is improved.? Date of service 07/02: Feeling well today.? Swelling continues to improve.? He denies any chest pain or palpitations.? Shortness of breath resolved. No GOMEZ. Date of service 07/03: Seen in [facility] today. Doing well today. No chest pain. Feeling better. Date of service 07/04/2023: Feels well this morning. No complaints of any kind. Eager to go home. Review of Systems Review of Systems: All systems reviewed & are unremarkable except as noted in HPI and below Exam Const: General: comfortable, no acute distress, alert and awake Orientation/consciousness: patient oriented x3 HENMT: Head: normal to inspection Mouth: Yes moist mucous membranes Eyes: General: appearance normal, both eyes and all related structures Sclera: sclerae normal Pupils: Equal, round and reactive pupils present Neck: Neck: normal visual inspection, supple and no JVD Carotids: normal carotid upstroke Resp: Effort & Inspection: normal respiratory effort Auscultation: no rales Cardio: Rate: regular rate and tachycardic Rhythm: abnormal rhythm irregularly irregular Heart sounds: S1 normal heart sound present, S2 normal heart sound present and no murmurs Other: No lower extremity edema GI: Auscultation: normal bowel sounds Skin: General skin exam: normal color Neuro: G
--- NOTE | 2023-07-04 09:54 | PM.DS ---
DS: Admitting Diagnosis Discharge Date 07/04/23 Admitting Diagnosis chest pain DS: Discharge Diagnosis Discharge Diagnosis (1) A-fib: Qualifiers: Atrial fibrillation type: unspecified Qualified Code(s): I48.91 - Unspecified atrial fibrillation Code(s): I48.91 - Unspecified atrial fibrillation Status: Acute Assessment and Plan: New onset. TSH normal. Echo shows decreased ejection fraction. The patient was started on Eliquis. The patient is rate controlled at this time. Cardiology has been consulted, recommending event monitor, outpatient PSG, eliquis and cont metoprolol at higher dose, monitor (2) Congestive heart failure: Qualifiers: Heart failure chronicity: acute Heart failure type: unspecified Qualified Code(s): I50.9 - Heart failure, unspecified Code(s): I50.9 - Heart failure, unspecified Status: Acute Assessment and Plan: Chest x-ray was read as Cardiomegaly with probable mild pulmonary edema The patient was started on IV Lasix. Metoprolol initiated. Moderately reduced LVSF, EF 35 - 40% GDMT with entresto, spironolactone, meoprolol (should be shifted to Toprol XL at d/c) Stress test wnl, d/c home tomorrow anticipated Plan DVT prophylaxis with Eliquis GI prophylaxis not indicated Code status full code DS: Summary Hospital Course Hospital Course: 58-year-old male patient who has no prior medical history.? The patient has been having some swelling to his lower extremities for at least the last 4 weeks.? He has also been more short of breath over the last 2 weeks with exertion. New diagnosis of atrial fibrillation.? Chronicity unknown.? Rate controlled with metoprolol.? Discussed management of AF including rate vs. rhythm control.? For now, will continue with rate control with plan for outpatient DCCV after he has been anticoagulated for 4-6 weeks. Rate controlled, no significant RVR.? Continue ToprolXL 100mg QD. [id number] score 2 (HTN, CHF).? Anticoagulation is warranted.? Continue Apixaban 5mg b.i.d. Echo showed moderately reduced LVSF, EF 35 - 40%.? ApneaLink AHI 74.? Outpatient sleep study. Moderately reduced LVSF, EF 35 - 40% GDMT with Entresto, Spironolactone, Toprol. Can add Jardiance as well if it is affordable Nuclear stress test negative for ishemia. Outpatient event monitor ordered. Please see above and med rec for details. Time Spent with Patient Time attestation: Total time spent providing and/or coordinating discharge services: Exam Narrative: General: No acute distress, alert and oriented per baseline HEENT: Atraumatic, normocephalic, mucous membranes moist CV: Regular rate and rhythm, S1, S2 Lungs: Clear to auscultation bilaterally, no rales or crackles noted, no wheezes, good air entry Abdomen: Soft, nontender, nondistended Extremities: Normal to inspection Skin: No rashes noted, no lesions or wounds seen Psych: Euthymic, normal affect DS: Data Data Completed and Pending Labs on day of discharge: Labs from last 24 hours 07/04/23 05:41 Potassium 4.4 Discharge Plan Discharge Attending physician on discharge: Corinne Corado Consulting providers: Sara Tang Discharging Clinician: Corinne Corado Patient Disposition: Home, Self-Care Activity: as tolerated Diet: as tolerated Patient Instructions: Antibiotic Form, Metoprolol (By mouth), Furosemide (By mouth), Apixaban (By mouth), Heart Failure (DC), A-fib (Atrial Fibrillation) (DC), Heart Healthy Diet (DC), Low-Sodium Diet (DC), Safe Use of Anticoagulants (DC), Blood Thinners (DC) Stand Alone Forms: General Discharge Information Follow-up/Referrals: Sara Tang, JULIAN-C [Advanced Practice Nurse] - PHYSICIAN NOT ON STAFF,NONSTAFF [Primary Care Provider] - Discharge Medications: New Eliquis 5 mg Tablet 5 mg PO Q12HR 30 Days Qty: 60 0RF Entresto 24-26 mg Tablet 1 tablet PO Q12HR 30
[2023-07-04] MEDS: polyethylene glycoL 3350 17 GM POWD.PACK PO (10:40)
[2023-07-04] MEDS: DOCUSATE SODIUM 100 MG CAPSULE PO (10:41)
== END 2023-07-04 12:45 | disposition home or self-care (01) ==
LOC: ANHED 14:53 → ANH3MEDSUR 18:23
PROVIDERS: Nurse Practitioner; Admitting Provider Hospitalist; Emergency Provider Student in an Organized Health Care Education/Training Program; Visit Provider Hospitalist
DX: I48.91 Unspecified atrial fibrillation (principal); I50.9 Heart failure, unspecified; I42.9 Cardiomyopathy, unspecified; I47.29 Other ventricular tachycardia; I07.1 Rheumatic tricuspid insufficiency; I49.3 Ventricular premature depolarization; R60.0 Localized edema; F10.90 Alcohol use, unspecified, uncomplicated
CPT/HCPCS: 36415; 71046; 78452; 80048; 80053; 81001; 83735; 83880; 84132; 84443; 84484; 85025; 85610; 85730; 93005; 93017; 93970; 96374; 96375; 96376; 99285; A9270; A9502; C8929; G0378; J0360; J1940; J2785; Q9957

== ENCOUNTER 2023-10-07 00:54 | Day surgery (SDC) | payer OTHER, SELFPAY ==
[2023-10-04 12:30] VITALS: BMI 43.7
--- NOTE | 2023-10-07 12:00 | ECG_ITS ---
Measurements Intervals [place] Rate: 86 P: [place]: 0 QRS: 43 QRSD: 97 T: 12 QT: 371 QTc: 446 Interpretive Statements ATRIAL FIBRILLATION DELAYED PRECORDIAL R/S TRANSITION MINIMAL Q WAVES- INFERIOR LEADS BASELINE ARTIFACT- I, II, III, AVR, AVL, AVF ABNORMAL ECG COMPARED TO ECG 06/30/2023 14:34:22 NO SIGNIFICANT CHANGES Electronically Signed On 10-07-2023 13:05:18 [employer] by Dwayne Cartwright D.O.
[2023-10-07 12:31] VITALS: BP 127/98; PULSE 82; RESP 14; O2SAT 97
[2023-10-07 12:43] VITALS: BMI 43.7
--- NOTE | 2023-10-07 12:56 | WPDANESEPPF ---
Anes - Initial Pre Proc Eval Procedure: Operation Date: 10/07/23 13:30 Proposed Procedures p Electrical Cardioversion - Devante Delarosa MD Date/Time: 10/07/23 12:56 Surgeon: Devante Delarosa MD Pre Op Diagnosis: A-Fib Patient Data Age: 58 Gender: M Height: 1.8 m Weight: 142 kg Last Vital Signs Pulse 82 10/07/23 12:31 Resp 14 10/07/23 12:31 BP 127/98 H 10/07/23 12:31 Pulse Ox 97 10/07/23 12:31 O2 Del Method Room Air 10/07/23 12:31 Allergies Allergy/AdvReac Type Severity Reaction Status Date / Time No Known Allergies Allergy Verified 10/07/23 12:19 Home Medications Medication Instructions Recorded Confirmed Type apixaban 5 mg tablet (Eliquis) 5 mg PO Q12HR 1 month #60 tabs 07/04/23 10/04/23 Rx furosemide 40 mg tablet 40 mg PO DAILY 1 month #30 tabs 07/04/23 10/04/23 Rx sacubitril 24 mg-valsartan 26 mg 1 tablet PO Q12HR 1 month #60 tabs 07/04/23 10/04/23 Rx tablet (Entresto) spironolactone 25 mg tablet 25 mg PO QAM 1 month #30 tabs 07/04/23 10/04/23 Rx metoprolol succinate 50 mg 50 mg PO QAM 10/04/23 10/04/23 History tablet,extended release 24 hr Laboratory Tests 10/07/23 12:28 Sodium Pending Potassium Pending Chloride Pending Carbon Dioxide Pending Anion Gap Pending BUN Pending Creatinine Pending Estim Creat Clear Calc Pending Estimated GFR Pending Glucose Pending Calcium Pending Magnesium Pending Patient hx anesthesia problems: none Family hx anesthesia problems: none Results Review: All pre-operative results and documents have been reviewed as part of the pre-operative evaluation. [facility] Past Medical History Medical History (Updated 10/07/23 @ 12:57 by Geronimo Pavon DO) A-fib Cardiomyopathy EF 35-40% NSVT (nonsustained ventricular tachycardia) Pulmonary edema Surgical History Surgical History No pertinent past surgical history Family History Family History Father Cancer Social History Social History Social History: The patient is a lifelong non smoker. The patient has a significant other but they do not live together. The patient has 3 children and he is single. 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 The patient states that he drinks socially on the weekend. Code status full code Smoking packs per day: 0 Smoking cigarettes per day: 0.0 Smoking status: Never smoker Second hand tobacco smoke exposure: No Alcohol intake: current Drinks per week: 3 Substance use: never Substance use type: does not use Lack of Transportation: No Lack of Food: Never True Current Housing: I Have Housing Concerned About Future Housing: No Difficulty Paying Gas/Electric Bills: No Difficulty Paying for Meds: No Currently Unemployed: No Education: Decline to Answer Difficulty w/ Childcare or Family Care: No Living arrangements: alone Spiritual care concerns: No Anes - Eval Final PreProcedure Day of Procedure 10/07/23 12:56 Patient weight: morbidly obese Heart: regular rate and rhythm Lungs: clear to auscultation Airway: Mallampati scale class II Neurological: alert and oriented Last oral intake: >/= 8 hours ASA classification: IV Emergent: no Anesthetic plan: proceed Anesthesia type and monitoring: general GIVS and standard monitoring Results Review: All pre-operative results and documents have been reviewed as part of the pre-operative evaluation. Informed Consent: The patient's anesthetic plan and its attendant risks and benefits were discussed with the patient/family/POA. Questions were solicited and answers provided to the satisfaction of the patient/family/POA.
[2023-10-07 13:10] LABS: Anion Gap 9 mmol/L (8-16); Blood Urea Nitrogen 17 mg/dL (9-20); Calcium 9.4 mg/dL (8.4-10.2); Carbon Dioxide 30 mmol/L (22-30); Chloride 100 mmol/L (98-107); Estimated CRCL calculation 85 ml/min; Estimated Glomerular Filt Rate > 60; Glucose 101 mg/dL (65-110); Magnesium 2.1 mg/dL (1.6-2.3); Potassium 4.3 mmol/L (3.4-5.0); Sodium 139 mmol/L (137-145)
--- NOTE | 2023-10-07 13:30 | ECG_ITS ---
Measurements Intervals [place] Rate: 80 P: [place]: 0 QRS: 69 QRSD: 98 T: 20 QT: 391 QTc: 452 Interpretive Statements ATRIAL FIBRILLATION DELAYED PRECORDIAL R/S TRANSITION BORDERLINE ST-T WAVE ABNORMALITY- INFERIOR LEADS BASELINE ARTIFACT- I, II, III, AVR, AVL, AVF, V1-V6 ABNORMAL ECG COMPARED TO ECG 10/07/2023 12:28:19 NO SIGNIFICANT CHANGES Electronically Signed On 10-07-2023 13:39:18 METHODS SPECIALIST by Dwayne Cartwright D.O.
--- NOTE | 2023-10-07 13:35 | WPDCARDPROC ---
Cardiac Cath Procedure Note Date of procedure:: 10/07/23 Performing physician:: Devante Delarosa MD Indication:: atrial fibrillation history of congestive heart failure Brief clinical history:: this is a 58-year-old man who presented with decompensated congestive heart failure in June of 2023. At the same time he was found to have some LV systolic dysfunction and persistent atrial fibrillation of unknown chronicity. He has been started on medical therapy for his cardiomyopathy and has done well. An attempt at restoring sinus rhythm electrically has been recommended primarily because of his relatively young age. He has been anticoagulated with apixaban and rate controlled with metoprolol. Procedure Procedure performed:: DC cardioversion Sedation/Medication given:: per the Anesthesia Service, see the separately dictated note Estimated blood loss:: 0 Procedure note:: patient was taken to the rd lab technician holding area in the postabsorptive state defibrillator patches were placed in the AP position and peripheral access IV was obtained. The anesthesia service provided sedation. When this was achieved the patient was DC cardioverted initially at 200 joules in a synchronized fashion which did not alter his rhythm. He then was cardioverted at 360 joules in synchronized fashion which did restore sinus rhythm however this only lasted for less than 2 minutes as before the 12 lead EKG could be done he was already back in atrial fibrillation. Upon recovery from sedation he is stable asymptomatic and offers no complaints Findings:: as above Conclusion:: 1. briefly successful DC cardioversion of atrial fibrillation restoring sinus rhythm but only for about 2 minutes on telemetry. AFib was recurrent before leaving the 12 lead ECG could be done. This failed at 200 joules and succeeded briefly at 360 joules. Devante Delarosa MD [facility]
[2023-10-07 13:39] VITALS: BP 137/107; PULSE 82; RESP 18; O2SAT 97
[2023-10-07 13:45] VITALS: BP 152/101; PULSE 72; RESP 18; O2SAT 97
[2023-10-07 14:00] VITALS: BP 165/92; PULSE 74; RESP 18; O2SAT 98
[2023-10-07 14:15] VITALS: BP 126/65; PULSE 86; RESP 18; O2SAT 98
[2023-10-07 14:35] VITALS: BP 150/100; PULSE 72; RESP 20; O2SAT 98
== END 2023-10-07 14:45 | disposition home or self-care (01) ==
PROVIDERS: Visit Provider Specialist
PROC: 5A2204Z Restoration of Cardiac Rhythm, Single (ICD-10-PCS; principal; 2023-10-07 13:30)
DX: I48.91 Unspecified atrial fibrillation (principal); I50.9 Heart failure, unspecified; E66.01 Morbid (severe) obesity due to excess calories; Z68.41 Body mass index [BMI] 40.0-44.9, adult
CPT/HCPCS: 36415; 80048; 83735; 92960; J2704